=== PATIENT | male | born 2000 | race American Indian/Alaskan Native ===

== ENCOUNTER 2025-01-27 15:10 | Emergency (ER) | payer OTHER | END 2025-01-27 17:30 | disposition home or self-care (01) | LOC: DL.ED 15:10 | DX: S62.355A Nondisplaced fracture of shaft of fourth metacarpal bone, left hand, initial encounter for closed fracture (principal); V87.2XXA Person injured in collision between car and pick-up truck or van (traffic), initial encounter | CPT/HCPCS: 29125; 73130-LT; 99283; 99284-25 ==